=== PATIENT | female | born 1950 | race Caucasian/White ===

== ENCOUNTER 2022-12-21 16:37 | Emergency (ER) | payer OTHER ==
--- OUTSIDE RECORDS SUMMARY | 2022-12-21 16:39 | XMS REPORT | Continuity of Care Document ---
:[address] [facility] t Address [address] [place] [address] [address] [place] [address] Care Team Providers Name Role Phone Li Monk Attending Clinician Unavailable Sean Brower Attending Clinician Unavailable Li Monk Admitting Clinician Unavailable Sean Brower Admitting Clinician Unavailable Physician, No Primary or Family Admitting Clinician Unavaila ble Payers Payer Name Policy Type Policy Number Effective Date Expiration Date S ource Problems This patient has no known problems. Allergies, Adverse Reactions, Alerts Allergy Allergy Status Severity Reaction(s) Onset Inactive Treating Comm ents Source Name Type Date Date Clinician No Known DA Active U [facility]10 [facility] 00:[facility]: d 00 [facility] No Known DA Active U [facility]10 [facility] 00:00: d 00 [facility] Medications This patient has no known medications. Procedures This patient has no known procedures. Encounters Start End Encounter Admission Attending Care Care Encounter Source Date/Time Date/Time Type Type Clinicians Facility Department ID 2022-10-07 2022-10-07 Outpatient ASYA Stovall000 [id number] [facility] 12:00:00 12:00:00 Li 52 [facility] 2021-09-29 2021-09-29 Outpatient ASYA Stovall000 [id number] [facility] 08:00:00 08:00:00 Li 39 [facility] 2020-09-01 2020-09-01 Outpatient EL Lacho, [facility] CRISTINA [id number] [facility] 12:00:00 12:00:00 Li 13 [facility] 2019-04-24 2019-04-24 [id number] [facility] 12:00:00 12:00:00 Mass, [address] [facility] 2019-04-02 2019-04-02 Outpatient EL Clarke [facility] CRISTIAN [id number] [facility] 12:00:00 12:00:00 Mass, [address] [facility] Results This patient has no known results.
--- NOTE | 2022-12-21 17:33 | RAD REPORT ---
EXAM DESCRIPTION: RAD - Chest Single View - 12/21/2022 5:23 pm CLINICAL HISTORY: CHEST PAIN COMPARISON: CHEST PA AND LAT 2 VIEW dated 02/27/2011 FINDINGS: Lines: None. Lungs: No evidence of edema or pneumonia. Linear scarring versus subsegmental atelectasis at the righ t lung base. Pleural: No significant pleural effusions or pneumothorax. Cardiac: The heart size is within normal limits. Mediastinum: Within normal limits. Bones: No acute fractures. Other: None IMPRESSION: Linear scarring versus subsegmental atelectasis at the right lung base. No acute process identified.
[2022-12-21 17:49] LABS: Absolute Lymphocytes (CBC) 1.3 K/uL (0.7-4.9); Hematocrit 39.9 % (36.0-45.0); Lymphocytes % 12.4 % (15.3-44.8); MCV 86.1 fL (80-100); MPV 8.2 fL (7.6-11.3); Platelets 278 thou/uL (152-406); RBC Red Blood Cell Count 4.64 M/uL (3.86-4.86)
[2022-12-21 17:52] LABS: Albumin 3.7 g/dL (3.4-5.0); Bilirubin Direct 0.2 mg/dL (0-0.2); Bilirubin Indirect, Calculated 0.4 mg/dL (0.2-0.8); Bilirubin Total 0.6 mg/dL (0.2-1.0); Magnesium 1.9 mg/dL (1.6-2.4); Potassium 3.9 mEq/L (3.5-5.1); Protein, Total 6.8 g/dL (6.4-8.2); Thyroid Stimulating Hormone 1.16 uIU/mL (0.358-3.740); Troponin High Sensitivity 15.5 pg/mL (<58.9)
--- NOTE | 2022-12-21 18:21 | EDPHYS ---
Physician Documentation [facility] Name: Emily Riddle Age: 72 yrs Sex: Female : 1950 Arrival Date: 12/21/2022 Time: 16:37 Bed 15 Private MD: ED Physician Jian Knight HPI: 12/21 21:05 This 72 yrs old Female presents to ER via EMS with complaints of SVT. rt 21:05 Patient presents to the ED with acute onset of chest pain, shortness of breath when she rt was in her garage. EMS was called, she was found to be in SVT with a heart rate in the 180s to 190s. Was given adenosine prior to arrival which converted to normal sinus rhythm which completely resolved her symptoms. She denies any acute complaints in the ED otherwise. Denies any previous history of SVT. Denies other acute complaints, symptoms are moderate severity, no other aggravating alleviating factors.. Historical: - Allergies: 16:43 Iodinated Contrast Media - IV Dye; ll1 - Immunization history:: Adult Immunizations up to date. - Social history:: Smoking status: Patient denies any tobacco usage or history of. - Family history:: not pertinent. ROS: 21:05 Constitutional: Negative for fever, chills, and weight loss, Abdomen/GI: Negative for rt abdominal pain, nausea, vomiting, diarrhea, and constipation, MS/Extremity: Negative for injury and deformity, Skin: Negative for injury, rash, and discoloration, Neuro: Negative for headache, weakness, numbness, tingling, and seizure, Psych: Negative for depression, anxiety, suicide ideation, homicidal ideation, and hallucinations, 21:05 Cardiovascular: Positive for chest pain, palpitations, Negative for 21:05 Respiratory: Positive for shortness of breath, Negative for cough, Exam: 21:05 Constitutional: This is a well developed, well nourished patient who is awake, alert, rt and in no acute distress. Head/Face: Normocephalic, atraumatic. Chest/axilla: Normal chest wall appearance and motion. Nontender with no deformity. No lesions are appreciated. Cardiovascular: Regular rate and rhythm with a normal S1 and S2. No gallops, murmurs, or rubs. Normal PMI, no JVD. No pulse deficits. Respiratory: Lungs have equal breath sounds bilaterally, clear to auscultation and percussion. No rales, rhonchi or wheezes noted. No increased work of breathing, no retractions or nasal flaring. Abdomen/GI: Soft, non-tender, with normal bowel sounds. No distension or tympany. No guarding or rebound. No evidence of tenderness throughout. Skin: Warm, dry with normal turgor. Normal color with no rashes, no lesions, and no evidence of cellulitis. MS/ Extremity: Pulses equal, no cyanosis. Neurovascular intact. Full, normal range of motion. Neuro: Awake and alert, GCS 15, oriented to person, place, time, and situation. Cranial nerves II-XII grossly intact. Motor strength 5/5 in all extremities. Sensory grossly intact. Cerebellar exam normal. Normal gait. Psych: Awake, alert, with orientation to person, place and time. Behavior, mood, and affect are within normal limits. 21:05 ECG was reviewed by the Attending Physician. Vital Signs: 16:30 BP 121 / 65; Pulse 90; Resp 16; Pulse Ox 99% on R/A; eh3 16:41 BP 119 / 72; Pulse 93; Resp 16; Temp 97.9; Pulse Ox 95% on R/A; Weight 72.57 kg; Height ll1 5 ft. 6 in. ; Pain 0/10; 17:00 BP 109 / 91; Pulse 95; Resp 16; Pulse Ox 99% on R/A; eh3 17:30 BP 120 / 55; Pulse 89; Resp 14; Pulse Ox 96% on R/A; eh3 18:00 BP 122 / 64; Pulse 93; Resp 20; Pulse Ox 97% on R/A; eh3 18:30 BP 108 / 54; Pulse 75; Resp 20; Pulse Ox 97% on R/A; eh3 16:41 Body Mass Index 25.82 (72.57 kg, 167.64 cm) ll1 16:41 Pain Scale: Adult ll1 MDM: 16:42 Patient medically screened. rt 21:05 Differential Diagnosis SVT, dysrhythmia, electrolyte disturbance. Data reviewed: vital rt signs, nurses notes, lab test result(s), EKG, radiologic studies. Consideration of Admission/Observation Escalation of care including admission/observation considered. Patient's issues resolved after treatment of SVT, symptoms not consistent with acute ischemia. Troponin was negative, she has a normal sinus rhythm in the ED and is asymptomatic. Troponin is negative. Do not believe patient would benefit from admission at this time. She will follow-up with cardiology in outpatient. She is comfortable with this plan. We will start metoprolol to hopefully to prevent further episodes recurring, strict return precautions were discussed with patient who verbalized understanding.. I considered the following discharge prescriptions or medication management in the emergency department Medications were administered in the Emergency Department. See MAR. Independent interpretation of the following test(s) in the Emergency Department X-Ray: My interpretation is No consolidation seen on interpretation of x-ray images. Counseling: I had a detailed discussion with the patient and/or guardian regarding the historical points, exam findings, and any diagnostic results supporting the discharge/admit diagnosis, lab results, radiology results, the need for outpatient follow up, to return to the emergency department if symptoms worsen or persist or if there are any questions or concerns that arise at home. 12/21 16:48 Order name: Basic Metabolic Panel; Complete Time: 17:57 rt 12/21 16:48 Order name: CBC with Diff; Complete Time: 17:57 rt 12/21 16:48 Order name: LFT's; Complete Time: 17:57 rt 12/21 16:48 Order name: Magnesium; Complete Time: 17:57 rt 12/21 16:48 Order name: Troponin HS; Complete Time: 17:57 rt 12/21 16:48 Order name: TSH; Complete Time: 17:57 rt 12/21 16:48 Order name: XRAY Chest (1 view); Complete Time: 17:35 rt 12/21 16:48 Order name: EKG; Complete Time: 16:48 rt 12/21 16:48 Order name: Cardiac monitoring; Complete Time: 17:13 rt 12/21 16:48 Order name: EKG - Nurse/Tech; Complete Time: 17:13 rt 12/21 16:48 Order name: IV Saline Lock; Complete Time: 17:13 rt 12/21 16:48 Order name: Labs collected and sent; Complete Time: 17:13 rt 12/21 16:48 Order name: O2 Per Protocol; Complete Time: 17:13 rt 12/21 16:48 Order name: O2 Sat Monitoring; Complete Time: 17:13 rt EC:05 Rate is 90 beats/min. Rhythm is regular, Normal Sinus Rhythm with No ectopy. QRS Sandoval rt is Normal. NE interval is normal. QRS interval is normal. QT interval is normal. No Q waves. T waves are Normal. No ST changes noted. Administered Medications: No medications were administered Disposition Summary: 12/21/22 18:20 Discharge Ordered Notes: Location: Home rt Problem: new rt Symptoms: are resolved rt Condition: Stable rt Diagnosis - Supraventricular tachycardia rt Followup: rt - With: Conor Blanchard MD - When: 5 - 6 days - Reason: Discharge Instructions: - Discharge Summary Sheet rt Forms: - Medication Reconciliation Form rt - Thank You Letter rt - Antibiotic Education rt - Prescription Opioid Use rt - Patient Portal Instructions rt - Leadership Thank You Letter rt Prescriptions: - metoprolol succinate 25 mg Oral Tablet, Extended Release 24 hr - take 1 tablet ORAL route 2 times per day; 60 tablet; Refills: 0, Product rt Selection Permitted Signatures: Dispatcher [employer] Meghan Angeles RN RN ll1 Jian Knight MD MD rt
--- NOTE | 2022-12-21 18:21 | ER ---
Nurse's Notes [facility] Name: Emily Riddle Age: 72 yrs Sex: Female : 1950 Arrival Date: 12/21/2022 Time: 16:37 Bed 15 Private MD: Diagnosis: Supraventricular tachycardia Presentation: 12/21 16:41 Chief complaint: Patient states: Cleaning out the garage and started to have SOB and ll1 chest pressure. EMS states: HR 185 SVT, 22G L AC adenosine 12 MG IV given. Converted to HR 93-95, other vitals stable. Fingerstick 213. Coronavirus screen: Client denies travel out of the [place] in the last 14 days. At this time, the client does not indicate any symptoms associated with coronavirus-19. Ebola Screen: Patient denies travel to an Ebola-affected area in the 21 days before illness onset. Initial Sepsis Screen: Does the patient meet any 2 criteria? No. Patient's initial sepsis screen is negative. Does the patient have a suspected source of infection? No. Patient's initial sepsis screen is negative. Risk Assessment: Do you want to hurt yourself or someone else? Patient reports no desire to harm self or others. Onset of symptoms was December 21, 2022. 16:41 Method Of Arrival: EMS ll1 16:41 Acuity: RUBENS 2 ll1 Historical: - Allergies: 16:43 Iodinated Contrast Media - IV Dye; ll1 - Immunization history:: Adult Immunizations up to date. - Social history:: Smoking status: Patient denies any tobacco usage or history of. - Family history:: not pertinent. Screenin:45 [facility] ED Fall Risk Assessment (Adult) Score/Fall Risk Level 0 - 2 = Low Risk. Abuse eh3 screen: Denies threats or abuse. Denies injuries from another. Nutritional screening: No deficits noted. Tuberculosis screening: No symptoms or risk factors identified. Assessment: 16:45 General: Appears in no apparent distress. uncomfortable, Behavior is calm, cooperative, eh3 appropriate for age. Pain: Denies pain. Neuro: Level of Consciousness is awake, alert, obeys commands, Oriented to person, place, time, situation. Cardiovascular: Capillary refill < 3 seconds Patient's skin is warm and dry. Respiratory: Airway is patent Respiratory effort is even, unlabored, Respiratory pattern is regular, symmetrical. GI: Abdomen is round non-distended. Derm: Skin is pink, warm \T\ dry. Musculoskeletal: Circulation, motion, and sensation intact. 17:30 Reassessment: Patient appears in no apparent distress at this time. Patient and/or 3 family updated on plan of care and expected duration. Pain level reassessed. Patient is alert, oriented x 3, equal unlabored respirations, skin warm/dry/pink. 18:30 Reassessment: Patient appears in no apparent distress at this time. Patient and/or 3 family updated on plan of care and expected duration. Pain level reassessed. Patient is alert, oriented x 3, equal unlabored respirations, skin warm/dry/pink. Vital Signs: 16:30 BP 121 / 65; Pulse 90; Resp 16; Pulse Ox 99% on R/A; eh3 16:41 BP 119 / 72; Pulse 93; Resp 16; Temp 97.9; Pulse Ox 95% on R/A; Weight 72.57 kg; Height ll1 5 ft. 6 in. ; Pain 0/10; 17:00 BP 109 / 91; Pulse 95; Resp 16; Pulse Ox 99% on R/A; eh3 17:30 BP 120 / 55; Pulse 89; Resp 14; Pulse Ox 96% on R/A; eh3 18:00 BP 122 / 64; Pulse 93; Resp 20; Pulse Ox 97% on R/A; eh3 18:30 BP 108 / 54; Pulse 75; Resp 20; Pulse Ox 97% on R/A; eh3 16:41 Body Mass Index 25.82 (72.57 kg, 167.64 cm) ll1 16:41 Pain Scale: Adult ll1 Vitals: 16:30 Cardiac Rhythm Assessment Sinus rhythm. eh3 ED Course: 16:39 Patient arrived in ED. mb9 16:40 Jian Knight MD is Attending Physician. rt 16:43 Triage completed. ll1 16:45 Patient has correct armband on for positive identification. Bed in low position. Call 3 light in reach. Side rails up X2. Provided Education on: use of call kinney. Client placed on continuous cardiac and pulse oximetry monitoring. NIBP monitoring applied. 16:45 Maintain EMS IV. Dressing intact. Good blood return noted. Site clean \T\ dry. Gauge \T\ eh 3 site: 20g LAC. 17:04 Deanne Callahan, RN is Primary Nurse. eh3 17:25 XRAY Chest (1 view) In Process Unspecified. EDMS 18:20 Conor Blanchard MD is Referral Physician. rt 19:00 No provider procedures requiring assistance completed. eh3 19:00 IV discontinued, intact, bleeding controlled, No redness/swelling at site. Pressure eh3 dressing applied. Administered Medications: No medications were administered Medication: 19:00 VIS not applicable for this client. eh3 Outcome: 18:20 Discharge ordered by . rt 19:00 Discharged to home ambulatory, with family, eh3 19:00 Condition: stable 19:00 Discharge instructions given to patient, Instructed on discharge instructions, follow up and referral plans. medication usage, Demonstrated understanding of instructions, follow-up care, medications, Prescriptions given X 1, 19:33 Patient left the ED. sb4 Signatures: Dispatcher [employer] EDMS Meghan Tom RN RN ll1 Deanne Callahan, RN RN eh3 Renetta Pak, PA-C PA-C sb4 Renae Hernadez RN RN mb9 Jian Knight MD MD rt
[2022-12-21 19:49] VITALS: TEMP 97.9
[2022-12-21 19:54] VITALS: O2SAT 97
[2022-12-21 19:55] VITALS: BP 108/54
--- NOTE | 2022-12-22 10:43 | EKG ---
Test Date: 2022-12-21 Test Time: 17:16:45 Organ Teacher: FALGUNI MEASUREMENT RESULTS: Intervals: Rate: 90 MO: 164 QRSD: 94 QT: 366 QTc: 447 [place]: P: 62 MO: 164 QRS: 45 T: 10 INTERPRETIVE STATEMENTS: Normal sinus rhythm Normal ECG Compared to ECG 01/06/2014 11:08:58 Sinus bradycardia no longer present Electronically Signed On 12-22-22 10:41:39 FIELD CONTACT TECHNICIAN by Conor Blanchard
== END 2022-12-21 19:33 | disposition home or self-care (01) ==
LOC: ER 16:37
DX: R07.89 Other chest pain (principal); I47.10 Supraventricular tachycardia, unspecified; Z91.041 Radiographic dye allergy status
CPT/HCPCS: 36415; 71045; 80048; 80076; 83735; 84443; 84484; 85025; 93005; 99284

== ENCOUNTER 2023-01-02 19:13 | Emergency (ER) | payer OTHER ==
--- OUTSIDE RECORDS SUMMARY | 2023-01-02 19:24 | XMS REPORT | Continuity of Care Document ---
:1950 Author Organization [facility] t Address [address] [place] [address] [address] [place] [address] Care Team Providers Name Role Phone Li [...] Allergie 4-10 [facility] 00:00: d 00 [facility] No Known DA Active U [facility] Allergie 4-10 [facility] 00:00: d 00 [facility] Medications This patient has no known medications. Procedures This patient has no known procedures. Encounters Start End Encounter Admission Attending Care Care Encounter Source Date/Time Date/Time Type Type Clinicians Facility Department ID 2022-10-07 2022-10-07 Outpatient ASYA Stovall000 [id number] [facility] 12:00:00 12:00:00 Li 52 [facility] 2021-09-29 2021-09-29 Outpatient ASYA Stovall000 [id number] [facility] 08:00:00 08:00:00 Li 39 [facility] 2020-09-01 2020-09-01 Outpatient EL Lacho, [facility] CRISTIAN [id number] [facility] 12:00:00 12:00:00 Li 13 [facility] 2019-04-24 2019-04-24 Out[facility] [id number] [facility] 12:00:00 12:00:00 Mass, 34 [facility] 2019-04-02 2019-04-02 Outpatient EL Clarke [facility] C[facility] [id number] [facility] 12:00:00 12:00:00 Mass, 11 [facility] Results This patient has no known results.
[2023-01-02] MEDS ORDERED: NA CHLORIDE 0.9% 500 ML ONE (20:35)
[2023-01-02] MEDS ORDERED: ONDANSETRON 4 MG/2 ML VIAL ONE (20:35)
[2023-01-02] MEDS ORDERED: FAMOTIDINE 20 MG/2 ML VIAL IV ONE (20:35)
[2023-01-02 20:50] LABS: Absolute Lymphocytes (CBC) 0.5 K/uL (0.7-4.9); Hematocrit 41.8 % (36.0-45.0); Lymphocytes % 5.2 % (15.3-44.8); MCV 84.8 fL (80-100); MPV 7.8 fL (7.6-11.3); Platelets 251 thou/uL (152-406); RBC Red Blood Cell Count 4.93 M/uL (3.86-4.86)
[2023-01-02 20:53] LABS: Protime INR 1.15
[2023-01-02 21:07] LABS: Albumin 3.6 g/dL (3.4-5.0); Bilirubin Total 0.7 mg/dL (0.2-1.0); Protein, Total 6.6 g/dL (6.4-8.2)
[2023-01-02 21:08] LABS: Magnesium 1.7 mg/dL (1.6-2.4); Potassium 3.9 mEq/L (3.5-5.1)
[2023-01-02] MEDS ORDERED: DIPHENHYDRAMINE 50 MG/ML VIAL ONE (21:11)
[2023-01-02] MEDS ORDERED: METHYLPREDNISOLONE 125 MG INJ ONE (21:11)
--- NOTE | 2023-01-02 21:23 | RAD REPORT ---
EXAM DESCRIPTION: RADChest Single View01/02/2023 9:15 pm CLINICAL HISTORY: vomiting COMPARISON: Chest Single View dated 12/21/2022; CHEST PA AND LAT 2 VIEW dated 02/27/2011 TECHNIQUE: Portable AP view of the chest. FINDINGS: The lungs are clear. No pneumothorax or effusion. The cardiomediastinal contours are unre markable. IMPRESSION: No acute cardiopulmonary process.
[2023-01-02 22:58] LABS: Blood Morphology Comment NOT SEEN (NOT SEEN); Platelet Estimate ADEQ
[2023-01-02 23:10] LABS: Urine Bilirubin Negative (Negative); Urine Blood Negative (Negative); Urine Clarity Clear (Clear); Urine Color Yellow (Yellow); Urine Glucose Negative (Negative); Urine Protein Negative (Negative); Urine Urobilinogen 0.2 mg/dL (0.2-1.0)
--- NOTE | 2023-01-03 00:57 | EDPHYS ---
Physician Documentation [facility] Name: Emily Riddle Age: 72 yrs Sex: Female : 1950 Arrival Date: 01/02/2023 Time: 19:13 Bed 14 Private MD: ED Physician Jian Knight HPI: 01/02 20:05 This 72 yrs old Female presents to ER via Ambulatory with complaints of cp Nausea/Vomiting/Diarrhea. 20:05 The patient presents to the emergency department with nausea, vomiting, that is cp intermittent, diarrhea, that is intermittent. Onset: The symptoms/episode began/occurred last week. Possible causes: antibiotics. Associated signs and symptoms: Pertinent positives: abdominal pain, black colored stool, Pertinent negatives: constipation, fever, GI bleeding. Severity of symptoms: in the emergency department the symptoms are unchanged despite home interventions. Historical: - Allergies: 19:42 Iodinated Contrast Media - IV Dye; mb9 - Home Meds: 19:42 levofloxacin 750 mg oral tablet [Active]; omeprazole 10 mg Oral capsule,delayed release mb9 (e.c.) [Active]; metoprolol tartrate 25 mg Oral tablet [Active]; atorvastatin 20 mg oral tablet [Active]; metformin 750 mg Oral Tablet, Extended Release 24 hr [Active]; - PMHx: 19:42 SVT; Diabetes mellitus; Hypercholesterolemia; mb9 - PSHx: 19:42 None; mb9 - Immunization history:: Adult Immunizations up to date. - Social history:: Smoking status: Patient denies any tobacco usage or history of. ROS: 20:10 Constitutional: Positive for poor PO intake, Negative for body aches, chills, fever, cp 20:10 Eyes: Negative for injury, pain, redness, and discharge, cp 20:10 ENT: Negative for drainage from ear(s), ear pain, sore throat, difficulty swallowing, difficulty handling secretions, 20:10 Cardiovascular: Negative for chest pain, edema, palpitations, 20:10 Respiratory: Negative for cough, shortness of breath, wheezing, 20:10 Abdomen/GI: Positive for abdominal pain, nausea, vomiting, and diarrhea, black/tarry stool, Negative for constipation, 20:10 : Negative for urinary symptoms, 20:10 Neuro: Negative for altered mental status, headache, syncope, 20:10 All other systems are negative, Exam: 20:15 Constitutional: The patient appears in no acute distress, alert, awake, cp non-diaphoretic, non-toxic, well developed, well nourished, uncomfortable, 20:15 Head/Face: Normocephalic, atraumatic. cp 20:15 Eyes: Periorbital structures: appear normal, Conjunctiva: normal, no exudate, no injection, Sclera: no appreciated abnormality, Lids and lashes: appear normal, bilaterally, 20:15 ENT: External ear(s): are unremarkable, Nose: is normal, Mouth: Lips: moist, Oral mucosa: pink and intact, moist, Posterior pharynx: is normal, airway is patent, no erythema, no exudate, 20:15 Neck: ROM/movement: is normal, is supple, without pain, no range of motions limitations, 20:15 Chest/axilla: Inspection: normal, 20:15 Cardiovascular: Rate: normal, Rhythm: regular, Edema: is not appreciated, JVD: is not appreciated, 20:15 Respiratory: the patient does not display signs of respiratory distress, Respirations: normal, no use of accessory muscles, no retractions, labored breathing, is not present, Breath sounds: are clear throughout, no decreased breath sounds, no stridor, no wheezing, 20:15 Abdomen/GI: Inspection: abdomen appears normal, Bowel sounds: active, all quadrants, Palpation: soft, in all quadrants, moderate abdominal tenderness, in the right lower quadrant and left lower quadrant, rebound tenderness, is not appreciated, involuntary guarding, is not appreciated, 20:15 Back: CVA tenderness, is absent, 20:15 Neuro: Orientation: to person, place \T\ time. Mentation: is normal, Motor: moves all fours, strength is normal, Sensation: is normal, 20:20 ECG was reviewed by the Attending Physician. cp Vital Signs: 19:40 BP 116 / 70; Pulse 87; Resp 18; Temp 98; Pulse Ox 100% ; Weight 72.57 kg; Height 5 ft. mb9 6 in. ; Pain 8/10; 20:27 BP 113 / 52; Pulse 61; Resp 18 S; Pulse Ox 100% on R/A; as6 21:51 Pulse 66; Resp 18 S; Pulse Ox 99% on R/A; as6 23:16 BP 99 / 86; Pulse 56; Resp 18 S; Pulse Ox 100% on R/A; as6 23:58 BP 117 / 59; Pulse 64; Resp 18 S; Pulse Ox 96% on R/A; as6 19:40 Body Mass Index 25.82 (72.57 kg, 167.64 cm) 9 19:40 Pain Scale: Adult mb9 MDM: 19:39 Patient medically screened. 01/03 00:55 Data reviewed: vital signs, nurses notes, lab test result(s), EKG, radiologic studies, cp CT scan, plain films. 00:55 Differential diagnosis: Nonspecific abd pain, gastritis, cholecystitis, pancreatitis, cp appendicitis, viral gastroenteritis, gastroenteritis. Consideration of Admission/Observation Escalation of care including admission/observation considered. I considered the following discharge prescriptions or medication management in the emergency department Medications were administered in the Emergency Department. See MAR. Response to treatment: the patient's symptoms have markedly improved after treatment, patient is well hydrated. and as a result, I will discharge patient. 01/02 19:58 Order name: CBC with Diff; Complete Time: 23:05 01/02 23:06 Interpretation: Normal except: RBC 4.93; BERNARDINO% 89.1; LYM% 5.2; NEUT A 8.4; LYMA 0.5. 01/02 19:58 Order name: CMP; Complete Time: 23:05 cp 01/02 23:06 Interpretation: Normal except: GLUC 151; GFR 79. 01/02 19:58 Order name: Lipase; Complete Time: 23:05 cp 01/02 23:06 Interpretation: Abnormal: LIP 101. 01/02 19:58 Order name: Magnesium; Complete Time: 23:05 01/02 19:58 Order name: PT-INR; Complete Time: 23:05 cp 01/02 19:58 Order name: Lactate w/ 2H reflex if indic.; Complete Time: 23:05 cp 01/02 19:58 Order name: Ova And Parasites 01/02 19:58 Order name: Rotavirus Antigen 01/02 19:58 Order name: Stool Culture 01/02 19:58 Order name: CDIFF 01/02 20:01 Order name: Troponin High Sensitivity; Complete Time: 23:05 cp 01/02 21:22 Order name: Manual Differential; Complete Time: 23:05 EDMS 01/02 23:06 Interpretation: Normal except: SEGS 85; BANDS [F] 4; LYM 2. cp 01/02 23:10 Order name: Urinalysis w/ reflexes; Complete Time: 00:49 EDMS 01/03 00:49 Interpretation: Normal except: UKET 3+. cp 01/02 20:01 Order name: XRAY Chest (1 view); Complete Time: 23:05 cp 01/02 22:24 Order name: Abdomen EDMS 01/02 19:58 Order name: EKG; Complete Time: 19:59 cp 01/02 19:58 Order name: IV Saline Lock; Complete Time: 20:21 cp 01/02 19:58 Order name: Labs collected and sent; Complete Time: 20:21 cp 01/02 19:58 Order name: EKG - Nurse/Tech; Complete Time: 20:21 cp EC/27 20:20 Rate is 72 beats/min. Rhythm is regular. FL interval is normal. QRS interval is normal. cp QT interval is prolonged. T waves are Inverted in lead aVR. Interpreted by me. Reviewed by me. Administered Medications: 20:26 Drug: Famotidine IVP 20 mg IVP once; dilute with 10 mL 0.9% NaCl; give over 2 minutes as Route: IVP; Site: right forearm; 01/03 01:03 Follow up: Response: No adverse reaction as6 01/02 20:26 Drug: Ondansetron IVP 4 mg IVP once; over 2 minutes Route: IVP; Site: right forearm; as6 01/03 01:03 Follow up: Response: No adverse reaction as6 01/02 20:26 Drug: NS 0.9% IV 500 ml IV at bolus once Route: IV; Rate: bolus; Site: right forearm; as6 01/03 01:04 Follow up: Response: No adverse reaction; IV Status: Completed infusion; IV Intake: as6 500ml 01/02 22:51 Drug: MethylPrednisoLONE IVP 125 mg IVP once Route: IVP; Site: right forearm; as6 01/03 01:04 Follow up: Response: No adverse reaction as6 01/02 22:51 Drug: diphenhydrAMINE IVP 50 mg IVP once Route: IVP; Site: right forearm; as6 01/03 01:04 Follow up: Response: No adverse reaction as6 Disposition: 20:24 Co-signature as Attending Physician, Jian Knight MD I reviewed the patient's care rt provided by the Advanced Practice Provider and agree with the diagnosis and treatment plan. Disposition Summary: 01/03/23 00:56 Discharge Ordered Notes: Location: Home cp Problem: new cp Symptoms: have improved cp Condition: Stable cp Diagnosis - Other cholelithiasis without obstruction cp - Diarrhea, unspecified cp - Nausea with vomiting, unspecified cp Followup: cp - With: Wing Still MD - When: 2 - 3 days - Reason: cholelithiasis Discharge Instructions: - Discharge Summary Sheet cp - Food Choices to Help Relieve Diarrhea, Adult cp - Diarrhea, Adult cp - Nausea and Vomiting, Adult cp - Cholelithiasis cp Forms: - Medication Reconciliation Form cp - Thank You Letter cp - Antibiotic Education cp - Prescription Opioid Use cp - Patient Portal Instructions cp - Leadership Thank You Letter cp Prescriptions: - Zofran 4 mg Oral Tablet - take 1 tablet ORAL route every 12 hours As needed; 20 tablet; Refills: 0, cp Product Selection Permitted - dicyclomine 20 mg Oral tablet - take 1 tablet ORAL route 4 times per day; 30 tablet; Refills: 0, Product cp Selection Permitted Signatures: Dispatcher [employer] EDMS Niles Galindo PA PA cp Ricardo Duarte RN RN as6 Renae Hernadez RN RN mb9 Jian Knight MD MD rt Corrections: (The following items were deleted from the chart) 01/02 22:24 20:09 Abdomen Pelvis W Con+CT.RAD.BRZ ordered. EDMS EDMS 23:13 19:59 Urinalysis+U.LAB.BRZ ordered. EDMS EDMS 01/03 23:33 01/02 20:05 Onset: The symptoms/episode began/occurred yesterday, cp cp
--- NOTE | 2023-01-03 00:57 | ER ---
Nurse's Notes [facility] Name: Emily Riddle Age: 72 yrs Sex: Female : 1950 Arrival Date: 01/02/2023 Time: 19:13 Bed 14 Private MD: Diagnosis: Other cholelithiasis without obstruction;Diarrhea, unspecified;Nausea with vomiting, unspecified Presentation: 01/02 19:40 Chief complaint: Patient states: "I've had N/V/D for the past week and it's getting mb9 worse today. I've been on [address] Harrington for H. Pylori and bladder infection. My stomach hurts really bad. I haven't had any thing to eat or drink since 0530 this afternoon.". Coronavirus screen: Vaccine status: Patient reports receiving the 2nd dose of the covid vaccine. Ebola Screen: No symptoms or risks identified at this time. Initial Sepsis Screen: Does the patient meet any 2 criteria? No. Patient's initial sepsis screen is negative. Does the patient have a suspected source of infection? No. Patient's initial sepsis screen is negative. Risk Assessment: Do you want to hurt yourself or someone else? Patient reports no desire to harm self or others. Onset of symptoms was January 02, 2023. 19:40 Method Of Arrival: Ambulatory mb9 19:40 Acuity: RUBENS 3 mb9 Triage Assessment: 19:44 General: Appears uncomfortable, Behavior is calm, cooperative. Pain: Complains of pain mb9 in abdomen. Respiratory: Airway is patent. GI: Reports diarrhea, nausea, vomiting. Musculoskeletal: Range of motion:. Historical: - Allergies: 19:42 Iodinated Contrast Media - IV Dye; mb9 - Home Meds: 19:42 levofloxacin 750 mg oral tablet [Active]; omeprazole 10 mg Oral capsule,delayed release mb9 (e.c.) [Active]; metoprolol tartrate 25 mg Oral tablet [Active]; atorvastatin 20 mg oral tablet [Active]; metformin 750 mg Oral Tablet, Extended Release 24 hr [Active]; - PMHx: 19:42 SVT; Diabetes mellitus; Hypercholesterolemia; mb9 - PSHx: 19:42 None; mb9 - Immunization history:: Adult Immunizations up to date. - Social history:: Smoking status: Patient denies any tobacco usage or history of. Screenin:58 [facility] ED Fall Risk Assessment (Adult) Score/Fall Risk Level 0 - 2 = Low Risk. Abuse as6 screen: Denies threats or abuse. Denies injuries from another. Nutritional screening: No deficits noted. Tuberculosis screening: No symptoms or risk factors identified. Assessment: 20:27 General: Appears in no apparent distress. comfortable, Behavior is calm, cooperative. as6 Pain: Complains of pain in epigastric area, right upper quadrant and left upper quadrant Quality of pain is described as crampy. Neuro: Level of Consciousness is awake, alert, obeys commands, Oriented to person, place, time, situation. Cardiovascular: Capillary refill < 3 seconds Patient's skin is warm and dry. Respiratory: Respiratory effort is even, unlabored, Respiratory pattern is regular, symmetrical. GI: Reports upper abdominal pain, diarrhea, nausea, vomiting. : No deficits noted. No signs and/or symptoms were reported regarding the genitourinary system. EENT: No deficits noted. No signs and/or symptoms were reported regarding the EENT system. Derm: Skin is intact, is healthy with good turgor. Musculoskeletal: Circulation, motion, and sensation intact. 21:53 Reassessment: Patient appears in no apparent distress at this time. Patient states as6 feeling better. Vital Signs: 19:40 BP 116 / 70; Pulse 87; Resp 18; Temp 98; Pulse Ox 100% ; Weight 72.57 kg; Height 5 ft. mb9 6 in. ; Pain 8/10; 20:27 BP 113 / 52; Pulse 61; Resp 18 S; Pulse Ox 100% on R/A; as6 21:51 Pulse 66; Resp 18 S; Pulse Ox 99% on R/A; as6 23:16 BP 99 / 86; Pulse 56; Resp 18 S; Pulse Ox 100% on R/A; as6 23:58 BP 117 / 59; Pulse 64; Resp 18 S; Pulse Ox 96% on R/A; as6 19:40 Body Mass Index 25.82 (72.57 kg, 167.64 cm) mb9 19:40 Pain Scale: Adult mb9 ED Course: 19:28 Patient arrived in ED. gm2 19:31 Niles Galindo PA is PHCP. cp 19:31 Jian Knight MD is Attending Physician. cp 19:42 Triage completed. mb9 19:44 Arm band placed on. mb9 19:45 Ricardo Duarte, RN is Primary Nurse. as6 20:21 Lipase Sent. as6 20:21 CMP Sent. as6 20:21 CBC with Diff Sent. as6 20:21 Magnesium Sent. as6 20:21 PT-INR Sent. as6 20:21 Lactate w/ 2H reflex if indic. Sent. as6 20:21 Troponin High Sensitivity Sent. as6 20:21 Inserted saline lock: 20 gauge in right forearm, using aseptic technique. Blood as6 collected. 20:28 Placed in gown. Bed in low position. Call light in reach. Side rails up X 1. as6 21:16 XRAY Chest (1 view) In Process Unspecified. EDMS 23:00 Abdomen In Process Unspecified. EDMS 01/03 00:55 Wing Still MD is Referral Physician. cp 01:04 No provider procedures requiring assistance completed. IV discontinued, intact, as6 bleeding controlled, No redness/swelling at site. Pressure dressing applied. 01:05 Provided Education on: follow up. as6 Administered Medications: 01/02 20:26 Drug: Famotidine IVP 20 mg IVP once; dilute with 10 mL 0.9% NaCl; give over 2 minutes as6 Route: IVP; Site: right forearm; 01/03 01:03 Follow up: Response: No adverse reaction as6 01/02 20:26 Drug: Ondansetron IVP 4 mg IVP once; over 2 minutes Route: IVP; Site: right forearm; as6 01/03 01:03 Follow up: Response: No adverse reaction as6 01/02 20:26 Drug: NS 0.9% IV 500 ml IV at bolus once Route: IV; Rate: bolus; Site: right forearm; as6 01/03 01:04 Follow up: Response: No adverse reaction; IV Status: Completed infusion; IV Intake: as6 500ml 01/02 22:51 Drug: MethylPrednisoLONE IVP 125 mg IVP once Route: IVP; Site: right forearm; as6 01/03 01:04 Follow up: Response: No adverse reaction as6 01/02 22:51 Drug: diphenhydrAMINE IVP 50 mg IVP once Route: IVP; Site: right forearm; as6 01/03 01:04 Follow up: Response: No adverse reaction as6 Medication: 01/02 19:58 VIS not applicable for this client. as6 Intake: 01/03 01:04 IV: 500ml; Total: 500ml. as6 Outcome: 00:56 Discharge ordered by . álvaro 01:04 Discharged to home ambulatory, with family, as6 01:04 Condition: stable 01:04 Discharge instructions given to patient, Instructed on discharge instructions, follow up and referral plans. medication usage, Demonstrated understanding of instructions, follow-up care, medications, Prescriptions given X 2, 01:05 Patient left the ED. as6 Signatures: Dispatcher [employer] EDMS Niles Galindo PA PA cp Slawson, Ashby, RN RN as6 Renae Hernadez RN RN mb9 Tessy Saba gm2
[2023-01-03 01:30] VITALS: TEMP 98
[2023-01-03 01:58] VITALS: BP 117/59; O2SAT 96
[2023-01-03 02:05] LABS: C.diff Antigen/Toxin Ag neg : Tox neg (NEG : NEG)
--- NOTE | 2023-01-03 12:29 | RAD REPORT ---
EXAM DESCRIPTION: CT - Abdomen Pelvis Wo Contrast - 01/02/2023 10:58 pm CLINICAL HISTORY: The patient is 72 years old and is Female; ABD PAIN TECHNIQUE: Axial computed tomography images of the abdomen and pelvis without intravenous contrast. Sagittal and coronal reformatted images were created and reviewed. This CT exam was performed usi ng one or more of the following dose reduction techniques: automated exposure control, adjustment o f the mA and/or kV according to patient size, and/or use of iterative reconstruction technique. COMPARISON: No relevant prior studies available. FINDINGS: LUNG BASES: Unremarkable. No mass. No consolidation. ABDOMEN: LIVER: Homogeneous without focal mass. GALLBLADDER AND BILE DUCTS: Calcified gallstone is present within the gallbladder. There is no du ctal dilatation. PANCREAS: Mild atrophy of the pancreas is noted. No ductal dilation. SPLEEN: Unremarkable. ADRENALS: Unremarkable. No mass. KIDNEYS AND URETERS: No obstructing stones. No hydronephrosis. No perinephric fluid. STOMACH AND BOWEL: The stomach is decompressed. Oral contrast is noted throughout the majority of the small bowel which is normal in caliber. Oral contrast and stool are noted throughout colon to le nancy of the rectum. There is no mucosal thickening or evidence of obstruction. Scattered colonic div erticula are present without surrounding inflammation. PELVIS: APPENDIX: The appendix is normal in caliber without surrounding inflammation. BLADDER: The bladder is moderately distended. No stones. REPRODUCTIVE: The patient is status post hysterectomy. ABDOMEN and PELVIS: INTRAPERITONEAL SPACE: Unremarkable. No free air. No significant fluid collection. BONES/JOINTS: Multilevel degenerative change of the spine is present. There is no acute fracture. SOFT TISSUES: The soft tissues are normal. VASCULATURE: Atherosclerosis of the vasculature is present. The vessels are normal in caliber. No abdominal aortic aneurysm. LYMPH NODES: Unremarkable. No enlarged lymph nodes. IMPRESSION: 1. Cholelithiasis without evidence to suggest cholecystitis. 2. Colonic diverticulosis. 3. No bowel obstruction. Electronically signed by: Patria Castanon MD 01/02/2023 11:28 PM MANAGER TITLE Due to temporary technical issues with the PACS/Fluency reporting system, reports are being signed by the in house radiologists without review as a courtesy to insure prompt reporting. The interpreting radiologist is fully responsible for the content of the report.
--- NOTE | 2023-01-05 15:25 | EKG ---
Test Date: 2023-01-02 Test Time: 20:11:41 Ror Engineer: MEASUREMENT RESULTS: Intervals: Rate: 72 ME: 150 QRSD: 96 QT: 390 QTc: 427 [place]: P: 42 ME: 150 QRS: 30 T: 11 INTERPRETIVE STATEMENTS: Normal sinus rhythm Normal ECG Compared to ECG 12/21/2022 17:16:45 No significant changes Electronically Signed On 01-05-23 15:14:53 SWITCHBOARD OPERATOR SUPERVISOR by Conor Blanchard
== END 2023-01-03 01:05 | disposition home or self-care (01) ==
LOC: ER 19:13
DX: K80.80 Other cholelithiasis without obstruction (principal); R19.7 Diarrhea, unspecified; E11.9 Type 2 diabetes mellitus without complications; Z91.041 Radiographic dye allergy status
CPT/HCPCS: 96361; 93005; 87045; 85025; 36415; 83735; 87177; 85610; 87046; 83605; 87209; 81003; 87324; 84484; 83690; 80053; 87425; 74176; 71045; 96375; 96374; 99284; J1200; J2930; J2405; J7040